=== PATIENT | male | born 1955 | race Hispanic/Latino ===

== ENCOUNTER 2019-08-27 16:04 | Emergency (ER) | payer OTHER ==
--- NOTE | 2019-08-27 16:58 | Event Note ---
ED Screening Note Date of service: 08/27/19 Time: 16:58 ED Screening Note: Pt complains of right foot pain x 3 days. Denies injury. states foot is slightly swollen This initial assessment/diagnostic orders/clinical plan/treatment(s) is/are subject to change based on patients health status, clinical progression and re- assessment by fellow clinical providers in the ED. Further treatment and workup at subsequent clinical providers discretion. Patient/guardian urged not to elope from the ED as their condition may be serious if not clinically assessed and managed. Initial orders include:
[2019-08-27 16:59] VITALS: BP 154/91
--- NOTE | 2019-08-27 17:24 | XRay Report ---
Right foot, 3 views INDICATION: Lateral pain and swelling FINDINGS: The joint space is maintained. There is no fracture or dislocation. No spurring or arthriti c change. No bone lesion or periostitis. No significant abnormality. IMPRESSION: Negative study Signer Name: Ish Arauz MD Signed: 08/27/2019 5:19 PM Workstation Name: [id number]
[2019-08-27] MEDS ORDERED: DELTASONE PO STA (20:08)
--- NOTE | 2019-08-27 20:08 | Emergency Department Report ---
ED Lower Extremity HPI - General Chief Complaint: Extremity Injury, Lower Stated Complaint: R FOOT PAIN Time Seen by Provider: 08/27/19 18:55 Source: patient Mode of arrival: Ambulatory Limitations: No Limitations - History of Present Illness MD Complaint: foot injury -: Gradual, days(s) (2) Injury: Foot: Right (lateral aspect of foot ) Type of Injury: unknown Place: home Severity: moderate Improves With: rest Worsens With: weight bearing, palpation Associated Symptoms: swelling, able to partially bear weight - Related Data Previous Rx's Medication Instructions Recorded Last Taken Type predniSONE [Deltasone] 50 mg PO QDAY #5 tab 08/27/19 Unknown Rx Allergies Allergy/AdvReac Type Severity Reaction Status Date / Time No Known Allergies Allergy Verified 08/27/19 16:15 ED Review of Systems ROS: Stated complaint: R FOOT PAIN Other details as noted in HPI Comment: All other systems reviewed and negative ED Past Medical Hx - Social History Smoking Status: Current Every Day Smoker Substance Use Type: None - Medications Home Medications: Home Medications Medication Instructions Recorded Confirmed Last Taken Type predniSONE [Deltasone] 50 mg PO QDAY #5 tab 08/27/19 Unknown Rx ED Physical Exam - General Limitations: No Limitations General appearance: alert, in no apparent distress - Head Head exam: Present: atraumatic, normocephalic - Eye Eye exam: Present: normal appearance - ENT ENT exam: Present: normal exam, normal orophraynx, mucous membranes moist - Neck Neck exam: Present: normal inspection - Respiratory Respiratory exam: Present: normal lung sounds bilaterally. Absent: respiratory distress - Cardiovascular Cardiovascular Exam: Present: regular rate, normal rhythm. Absent: systolic murmur, diastolic murmur, rubs, gallop - GI/Abdominal GI/Abdominal exam: Present: soft, normal bowel sounds - Rectal Rectal exam: Present: deferred - Extremities Exam Extremities exam: Present: normal inspection, tenderness - Expanded Lower Extremity Exam Right Foot/Toe exam: Present: tenderness, swelling, erythema. Absent: ecchymosis, deformity, amputation, puncture wound, foreign body Neuro vascular tendon exam: Present: no vascular compromise. Absent: pulse deficit, abnormal cap refill, motor deficit, sensory deficit Gait: Positive: antalgic 1 - Tenderness to this region with palpation. Some redness is noted no crepitus mild warmth. - Back Exam Back exam: Present: normal inspection. Absent: CVA tenderness (R) - Neurological Exam Neurological exam: Present: alert, oriented X3, CN II-XII intact, normal gait - Psychiatric Psychiatric exam: Present: normal affect, normal mood - Skin Skin exam: Present: warm, dry, intact, normal color. Absent: rash ED Course Vital Signs 08/27/19 16:57 Temperature 98.2 F Pulse Rate 100 H Respiratory 16 Rate Blood Pressure 154/91 O2 Sat by Pulse 95 Oximetry ED Lower Extremity MDM - Medical Decision Making 64-year-old male reports atraumatic right lateral foot pain is worse with palpation and range of motion. X-rays were normal. Area is warm. There is no obvious known trauma to the region. Symptoms have been worsening over the last 2 days plan we'll cover with ice and anti-inflammatories as well as is his crutches to promote rest and have him be reevaluated by primary care doctor or podiatry. There is no evidence of any foreign bodies or any bony injury although cannot rule out joint arthritis or joint injury. Infection is also a small possibility although does not appear to have any lymphangitis or significant redness that was supports cellulitis at this present time - Differential Diagnosis foot sprain, fracture, arthritis, Critical care attestation.: If time is entered above; I have spent that time in minutes in the direct care of this critically ill patient, excluding procedure time. ED Disposition Clinical Impression: Foot pain Disposition: DC- TO HOME OR SELFCARE Is pt being admited?: No Does the pt Need Aspirin: No Condition: Stable Instructions: Arthralgia (ED), RICE Therapy (ED), Ice Pack Application (ED) Additional Instructions: Please be sure to F/U with PCP or Podiatry for further evaluation. Use crutches and ice for comfort. if you develop fever or more redness please return to ED fro further evaluation. Prescriptions: predniSONE [Deltasone] 50 mg PO QDAY #5 tab Referrals: [facility] [Provider Group] - 3-5 Days ANURADHA FROST DPM [Staff Physician] - 3-5 Days WILLARD CENTENO MD [Staff Physician] - 3-5 Days MARIAM STEWART DPM [Staff Physician] - 3-5 Days CASA YANG DPM [Referring] - 3-5 Days ROS CADENA DPM [Referring] - 3-5 Days
== END 2019-08-27 20:36 | disposition home or self-care (01) ==
LOC: ED 16:04
DX: M79.671 Pain in right foot (principal); R22.41 Localized swelling, mass and lump, right lower limb; F17.200 Nicotine dependence, unspecified, uncomplicated
CPT/HCPCS: 73630; 99284; J7512